=== PATIENT | female | born 1970 | race Caucasian/White ===

== ENCOUNTER 2017-01-26 21:33 | Emergency (ER) | payer BC, OTHER ==
[~2017-01-26] VITALS: Ht 172.7 cm; Wt 73.5 kg
[2017-01-26 21:53] VITALS: Ht 172.7 cm; Wt 73.5 kg
[2017-01-26] MEDS ORDERED: ONDANSETRON 4 MG INJ IV STA (23:51)
[2017-01-26] MEDS ORDERED: KETOROLAC 30 MG INJ IV STA (23:51)
[2017-01-27 00:55] LABS: ADD SCAN DIFF NO
[2017-01-27 00:57] LABS: BASOPHIL # 0.1 10^3/ul (0.0-0.1); BASOPHILS % 0.6 % (0.0-2.0); EOSINOPHILS # 0.1 10^3/ul (0.0-0.5); EOSINOPHILS % 1.4 % (0.0-7.0); HEMATOCRIT 41.2 % (37.0-47.0); HEMOGLOBIN 13.3 g/dl (12.0-16.0); LYMPHOCYTES # 1.4 10^3/ul (0.8-2.9); MEAN CORPUSCULAR HEMOGLOBIN 29.4 pg (29.0-33.0); MEAN CORPUSCULAR HGB CONC 32.3 g/dl (32.0-37.0); MEAN CORPUSCULAR VOLUME 91.2 fl (82.0-101.0); MEAN PLATELET VOLUME 11.3 fl (7.4-10.4); MONOCYTE # 0.5 10^3/ul (0.3-0.9); MONOCYTES % 5.9 % (0.0-11.0); NEUTROPHIL # 5.7 10^3/ul (1.6-7.5); NEUTROPHILS % 73.7 % (39.0-77.0); PLATELET COUNT 243 10^3/UL (140-415); RED BLOOD COUNT 4.52 10^6/ul (4.20-5.40); RED CELL DISTRIBUTION WIDTH 12.5 % (11.5-14.5); WHITE BLOOD COUNT 7.8 10^3/ul (4.8-10.8)
--- NOTE | 2017-01-27 01:07 | ERD ---
ER Documentation Chief Complaint Date/Time DATE: 01/27/17 TIME: 01:05 Chief Complaint Sudden sharp l flank pain Thursday, hx of kidney stones HPI This is a 46-year-old female presents to the ER with sharp left-sided flank pain that started today. Patient states that on Thursday she began to have hematuria and dysuria, and she decided to go to her local urgent care where she was prescribed Keflex and Pyridium. Patient states that yesterday she started feeling better however today her sharp flank pain began. Patient admits to vomiting. Vomiting is nonbilious nonbloody. She does not have any diarrhea. She does not have any fevers or chills. She denies any vaginal discharge. Left -sided flank pain does not radiate to her legs. She denies any trauma to the back. Her last normal menstrual period was a week and a half ago. ROS 12 point review of systems was done, all negative except per HPI. Medications Home Meds Active Scripts Ondansetron Hcl* (Zofran*) 4 Mg Tab, 4 MG PO Q4H Y for NAUSEA AND OR VOMITING, # 15 TAB Prov:BRAYAN RENDON 01/27/17 Hydrocodone/Acetaminophen ([place] 10-325 Tablet) 1 Each Tablet, 1 TAB PO Q6H Y for PAIN, #15 TAB Prov:BRAYAN RENDON 01/27/17 Ibuprofen* (Motrin*) 600 Mg Tab, 600 MG PO Q6, #30 TAB Prov:BRAYAN RENDON 01/27/17 PMhx/Soc History of Surgery: Yes (C-SECTIONS X 2) Anesthesia Reaction: No Hx Neurological Disorder: No Hx Respiratory Disorders: No Hx Cardiac Disorders: No Hx Psychiatric Problems: No Hx Miscellaneous Medical Probl: No Hx Alcohol Use: Yes (DRINK ETOH ONCE A MONTH) Hx Substance Use: No Hx Tobacco Use: No Smoking Status: Never smoker Physical Exam Vitals Vital Signs Date Time Temp Pulse Resp B/P Pulse Ox O2 Delivery O2 Flow Rate FiO2 01/27/17 02:52 99.4 62 16 117/63 100 Room Air 01/26/17 21:53 99.4 60 16 108/82 99 Physical Exam GENERAL: The patient is well developed and appropriate for usual state of health , in no apparent distress. HEENT: Atraumatic. CHEST: Clear to auscultation bilaterally. There are no rales, wheezes or rhonchi. HEART: Regular rate and rhythm. No murmurs, clicks, rubs or gallops. ABDOMEN: Soft, nontender and nondistended. Good bowel sounds. No rebound or guarding. No gross peritonitis. No gross organomegaly or masses. No Mejia sign or McBurney point tenderness. BACK: No midline or flank tenderness. NEURO: Alert and oriented. Result Diagram: 01/27/17 0014 01/27/17 0014 Results 24 hrs Laboratory Tests Test 01/27/17 00:14 White Blood Count 7.810^3/ul Red Blood Count 4.5210^6/ul Hemoglobin 13.3g/dl Hematocrit 41.2% Mean Corpuscular Volume 91.2fl Mean Corpuscular Hemoglobin 29.4pg Mean Corpuscular Hemoglobin Concent 32.3g/dl Red Cell Distribution Width 12.5% Platelet Count 46241^3/UL Mean Platelet Volume 11.3fl Neutrophils % 73.7% Lymphocytes % 18.0% Monocytes % 5.9% Eosinophils % 1.4% Basophils % 0.6% Nucleated Red Blood Cells % 0.0/100WBC Neutrophils # 5.710^3/ul Lymphocytes # 1.410^3/ul Monocytes # 0.510^3/ul Eosinophils # 0.110^3/ul Basophils # 0.110^3/ul Nucleated Red Blood Cells # 0.010^3/ul Urine Color LT. YELLOW Urine Clarity CLEAR Urine pH 6.0 Urine Specific [place] 1.015 Urine Ketones NEGATIVE Urine Nitrite NEGATIVE Urine Bilirubin NEGATIVE Urine Urobilinogen 0.2 E.U./dL Urine Leukocyte Esterase NEGATIVE Urine Microscopic RBC >200/HPF Urine Microscopic WBC 2-5/HPF Urine Squamous Epithelial Cells FEW Urine Bacteria FEW Urine Hemoglobin 3+ Urine Glucose NEGATIVE% Urine Total Protein NEGATIVE Sodium Level 140mmol/L Potassium Level 3.9mmol/L Chloride Level 101mmol/L Carbon Dioxide Level 25mmol/L Anion Gap 18 Blood Urea Nitrogen 14mg/dl Creatinine 0.90mg/dl Glucose Level 95mg/dl Calcium Level 9.8mg/dl Total Bilirubin 0.3mg/dl Direct Bilirubin 0.00mg/dl Indirect Bilirubin 0.3mg/dl Aspartate Amino Transf (AST/SGOT) 24IU/L Alanine Aminotransferase (ALT/SGPT) 29IU/L Alkaline Phosphatase 69IU/L Total Protein 7.7g/dl Albumin 4.8g/dl Globulin 2.90g/dl Albumin/Globulin Ratio 1.65 Lipase 63U/L Current Medications Medications (Trade) Dose Ordered Sig/Loid[place] Route PRN Reason Start Time Stop Time Status Last Admin Dose Admin Ondansetron HCl (Zofran Inj) 4 mg ONCE STAT IV 01/26/17 23:51 01/26/17 23:54 DC 01/27/17 00:31 Ketorolac Tromethamine (Toradol) 30 mg ONCE STAT IV 01/26/17 23:51 01/26/17 23:54 DC 01/27/17 00:32 Procedures/MDM This is 46 y/o female that presents to the ER for flank pain, dysuria and hematuria. Patient was worked up for possible kidney stone, obstructive stone, septic stone, UTI. I am awaiting CT results. Patient likely has a kidney stone as there is blood in her urine. There was no evidence of UTI and no evidence of leukocytosis. Patient is afebrile and well appearing if CT is normal patient will be sent home with pain and nausea control. Whitley Bueno will review CT scan. Departure Diagnosis: Primary Impression: Flank pain Condition: Stable BRAYAN RENDON Jan 27, 2017 01:07
[2017-01-27 01:17] LABS: ADD UMIC YES; UR BILIRUBIN (Dip) NEGATIVE (NEGATIVE); UR BLOOD (Dip) 3+ (NEGATIVE); UR CLARITY CLEAR (CLEAR); UR COLOR LT. YELLOW (YELLOW); UR GLUCOSE (Dip) NEGATIVE (NEGATIVE); UR KETONES (Dip) NEGATIVE (NEGATIVE); UR LEUKOCYTE ESTERASE (Dip) NEGATIVE (NEGATIVE); UR NITRITE (Dip) NEGATIVE (NEGATIVE); UR TOTAL PROTEIN (Dip) NEGATIVE (NEGATIVE); UR UROBILINOGEN (Dip) 0.2 E.U./dL (0.1-1.0)
[2017-01-27 01:28] LABS: ALBUMIN 4.8 g/dl (3.3-4.9); ALBUMIN/GLOBULIN RATIO 1.65; BILIRUBIN,INDIRECT 0.3 mg/dl (0-1.1); BILIRUBIN,TOTAL 0.3 mg/dl (0.2-1.3); CALCIUM 9.8 mg/dl (8.4-10.2); CREATININE 0.9 mg/dl (0.44-1.00); POTASSIUM 3.9 mmol/L (3.5-5.1); TOTAL PROTEIN 7.7 g/dl (6.1-8.1)
[2017-01-27 02:00] LABS: UR BACTERIA FEW; UR SQUAMOUS EPITHELIAL CELL FEW; URINE RBCS >200 /HPF (0)
[2017-01-27] MEDS ORDERED: HYDR-902 PO (02:02)
[2017-01-27] MEDS ORDERED: IBUP-1542 PO (02:02)
[2017-01-27] MEDS ORDERED: ONDA-43 PO (02:03)
--- NOTE | 2017-01-27 02:12 | RADRPT ---
PROCEDURE: CT Abdomen and Pelvis without contrast. CLINICAL INDICATION: Flank pain. TECHNIQUE: A CT scan of the abdomen and pelvis was performed without intravenous contrast. León l and sagittal reformatted images were generated. Images were reviewed on a high-resolution PACS wor kstation. CTDIvol: 9.41 mGy. DLP: 534.50 mGy-cm. One or more of the following dose reduction techniques were used: - Automated exposure control. - Adjustment of the mA and/or kV according to patient size. - Use of iterative reconstruction technique. COMPARISON: None. FINDINGS: There is minimal atelectasis in both lower lobes. Evaluation of the abdominal and pelvic viscera is limited by the lack of oral and intravenous contra st. The liver is unremarkable. The gallbladder is normal in appearance. The common bile duct is not dila allison. The spleen is not enlarged. No pancreatic lesion is identified and there is no pancreatic ducta l dilatation. The adrenal glands are unremarkable. The kidneys are normal in size. There is mild left hydroureteronephrosis down to the inferior pelvis . The distal most left ureter is not clearly visualized. A 5 mm calcification is identified in the expected location of the distal most left ureter, possibly representing an obstructing ureteral sto ne. No right hydronephrosis is seen. There are multiple nonobstructing stones in both kidneys measur ing up to 5 mm on the right. The small and large bowel are normal in caliber. There is no bowel wall thickening. There is a 6 mm diameter tubular structure adjacent to the right internal iliac vessels which appears to represent a normal appendix, but it cannot be definitively traced to the cecum. The urinary bladder is unremarkable. The pelvic organs are within normal limits. No lymphadenopathy is identified. There is no ascites. No pneumoperitoneum is seen. There are no art erial calcifications. No suspicious osseous lesion is idenitified. IMPRESSION: 1. Mild left hydroureteronephrosis down to the inferior pelvis. The distal most left ureter is not clearly visualized. A 5 mm calcification is identified in the expected location of the distal most left ureter, possibly representing an obstructing ureteral stone. 2. Multiple nonobstructing stones in both kidneys measuring up to 5 mm on the right. RPTAT: HTAR .Jacob Walsh MD, Date Time Electronically viewed and signed by .Jacob Walsh MD, on 01/27/2017 02:11 .R/
[2017-01-27 02:52] VITALS: BP 117/63; PULSE 62; RESP 16; TEMP 99.4
== END 2017-01-27 02:54 | disposition home or self-care (01) ==
LOC: FTE 21:33
DX: R10.9 Unspecified abdominal pain (principal); R11.10 Vomiting, unspecified
CPT/HCPCS: 36415; 74176; 80053; 81001; 83690; 85025; 96374; 96375; 99285; J1885; J2405